=== PATIENT | female | born 1975 | race Caucasian/White ===

== ENCOUNTER 2017-02-09 15:57 | Observation (INO) ==
--- NOTE | 2017-02-09 16:01 | Emergency Department Note ---
Disposition Clinical Impression: Chest pain Disposition: Admitted As Inpatient Condition: Good Referrals: Erin Lopez MD [Primary Care Provider] - Chest Pain HPI - General Stated Complaint: chest pain Time Seen by Provider: 02/09/17 16:01 Source: patient Mode of arrival: private vehicle Limitations: no limitations Vital Signs Reviewed: Yes Nursing Notes Reviewed: Yes - History of Present Illness HPI Narrative: 41-year-old overweight white female presents to emergency department complaining of chest pain. She says for the last week she has been having palpitations and chest pain on and off. She says it became more persistent today and she felt more concerned. She has not had a problem with her heart in the past. She says that when her heart races she feels like she cannot catch her breath. She is currently not short of breath. She describes her pain as a dull ache that goes across her chest and radiates into her left neck. She says occasionally it feels like a sharp stabbing pain. She has had no cough or cold symptoms. She denies any injury. She does not smoke and does not have diabetes. Both her mother and father have a history of coronary artery disease with her father having a massive heart attack at age 40. She says that she has been taking aspirin for her pain. She appears to be comfortable presently. She denies excessive use of caffeine and says that she only has half cup of coffee in the morning. - Related Data Home Medications Medication Instructions Recorded Confirmed No Known Home Drugs 02/09/17 02/09/17 Allergies Allergy/AdvReac Type Severity Reaction Status Date / Time Sulfa (Sulfonamide Allergy Blister Verified 05/14/16 06:20 Antibiotics) sulfamethoxazole Allergy Blister Verified 05/14/16 06:20 [From Bactrim] trimethoprim [From Bactrim] Allergy Blister Verified 05/14/16 06:20 wheat Allergy See Verified 05/14/16 06:20 Comments Erythromycin Base AdvReac Nausea Verified 05/14/16 06:20 latex AdvReac See Verified 05/14/16 06:20 Comments All systems ED: reviewed and negative except as stated. Constitutional: Denies: fever, chills, weakness, weight change Eyes: Denies: eye pain, eye discharge, vision change ENT ED: Denies: ear pain, throat pain, dental pain, hearing loss, epistaxis, congestion, dysphagia Cardiovascular: Reports: as per HPI, chest pain, palpitations Respiratory: Reports: as per HPI, dyspnea Gastrointestinal: Denies: abdominal pain, nausea, vomiting, diarrhea, constipation, hematemesis, melena, hematochezia Genitourinary: Denies: dysuria, frequency, hematuria, discharge Musculoskeletal: Denies: back pain, neck pain, arthralgia, myalgia Integumentary: Denies: rash, abrasion, lesions Neurological: Denies: headache, weakness, numbness, paresthesias, confusion, abnormal gait, vertigo Psychiatric: Denies: anxiety, depression, suicidal thoughts, homicidal thoughts , auditory hallucinations, visual hallucinations Endocrine: Denies: fatigue Hematological/Lymphatic: Denies: easy bleeding, easy bruising Allergic/Immunologic: Denies: facial swelling, urticaria Chest Pain PMH - Past Medical History Medical history: Reports: other Psychiatric history: Reports: depression 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 Absent : tenderness - Respiratory Respiratory exam: Present: normal lung sounds bilaterally - Cardiovascular Cardiovascular exam: Present: regular rate, normal rhythm, normal heart sounds - Abdominal Exam Abdominal exam: Present: soft, Non-Tender. Absent: tenderness, distention, guarding, rebound, rigidity, organomegaly, pulsatile mass - Extremities Exam Extremities exam: Present: normal inspection, full ROM. Absent: tenderness, pedal edema - Back Exam Back exam: Present: normal inspection, full ROM. Absent: tenderness - Neurological Exam Neurological exam: Present: alert, oriented X3 - Psychiatric Psychiatric exam: Present: normal affect, normal mood - Skin Skin exam: Present: warm, dry, intact, normal color Course Course Narrative: The patient remained stable throughout her emergency department stay without complaint. I spoke with Dr. Lopez at 1820 the patient will be observed overnight in the hospital. Vital Signs Temperature 98.0 F 02/09/17 16:02 Pulse Rate 96 02/09/17 16:02 Respiratory Rate 18 02/09/17 16:02 Blood Pressure 120/76 02/09/17 16:02 O2 Sat by Pulse Oximetry 96 02/09/17 16:02 Temperature 98.0 F 02/09/17 16:02 Pulse Rate 74 02/09/17 18:12 Respiratory Rate 16 02/09/17 18:12 Blood Pressure 126/85 02/09/17 18:12 O2 Sat by Pulse Oximetry 99 02/09/17 18:12 Oxygen Delivery Oxygen Delivery Room Air Chest Pain - Lab Data Lab results reviewed: Yes I reviewed the patient's lab results. Result diagrams: 02/09/17 16:24 02/09/17 16:24 Lab Results 02/09/17 02/09/17 02/09/17 Range/Units 16:24 16:24 16:24 WBC 8.5 (4.3-11.1) K/mcL RBC 4.53 (3.82-4.97) M/mcL Hgb 13.0 (11.5-15.4) g/dL Hct 38.7 (35.3-44.9) % MCV 85.4 (83.0-100.0) fL MCH 28.7 (28.0-33.3) pg MCHC 33.6 (31.6-35.5) g/dL RDW 13.2 (11.5-14.5) % Plt Count 292 (140-400) K/mcL MPV 10.2 (9.4-12.4) fL Immature Gran % 0.2 (0-4) % Seg Neutrophils % 57.6 % Lymphocytes % 32.6 % Monocytes % 6.8 % Eosinophils % 2.0 % Basophils % 0.8 % Neutrophils # 4.9 (1.6-8.9) K/mcL Lymphocytes # 2.8 (0.6-4.6) K/mcL Monocytes # 0.6 (0.0-1.3) K/mcL Eosinophils # 0.2 (0.0-0.6) K/mcL Basophils # 0.1 (0.0-0.2) K/mcL PT 11.1 (9.4-12.1) Seconds INR 1.0 D-Dimer 248 (0-500) ng/mLFEU Sodium (136-145) mEq/L Potassium (3.5-4.5) mEq/L Chloride (98-109) mEq/L Carbon Dioxide (19-29) mEq/L BUN (7-20) mg/dL Creatinine (0.57-1.11) mg/dL Est GFR ( Amer) (> 60) Est GFR (Non-Af Amer) (> 60) BUN/Creatinine Ratio (6-26) Glucose (70-99) mg/dL Calculated Osmolality (280-300) Calcium (8.6-10.8) mg/dL Total Bilirubin (0.2-1.2) mg/dL AST (5-34) Units/L ALT (0-55) Units/L Alkaline Phosphatase (38-126) Units/L Troponin I 0.00 (0-0.03) ng/mL Serum Total Protein (6.0-8.3) g/dL Albumin (3.5-5.0) g/dL Globulin (2.4-3.5) g/dL Albumin/Globulin Ratio (1.1-2.2) /02/18 Range/Units 16:24 WBC (4.3-11.1) K/mcL RBC (3.82-4.97) M/mcL Hgb (11.5-15.4) g/dL Hct (35.3-44.9) % MCV (83.0-100.0) fL MCH (28.0-33.3) pg MCHC (31.6-35.5) g/dL RDW (11.5-14.5) % Plt Count (140-400) K/mcL MPV (9.4-12.4) fL Immature Gran % (0-4) % Seg Neutrophils % % Lymphocytes % % Monocytes % % Eosinophils % % Basophils % % Neutrophils # (1.6-8.9) K/mcL Lymphocytes # (0.6-4.6) K/mcL Monocytes # (0.0-1.3) K/mcL Eosinophils # (0.0-0.6) K/mcL Basophils # (0.0-0.2) K/mcL PT (9.4-12.1) Seconds INR D-Dimer (0-500) ng/mLFEU Sodium 143 (136-145) mEq/L Potassium 3.9 (3.5-4.5) mEq/L Chloride 108 (98-109) mEq/L Carbon Dioxide 22 (19-29) mEq/L BUN 8 (7-20) mg/dL Creatinine 0.76 (0.57-1.11) mg/dL Est GFR ( Amer) > 60 (> 60) Est GFR (Non-Af Amer) > 60 (> 60) BUN/Creatinine Ratio 11 (6-26) Glucose 88 (70-99) mg/dL Calculated Osmolality 294 (280-300) Calcium 10.0 (8.6-10.8) mg/dL Total Bilirubin 0.3 (0.2-1.2) mg/dL AST 26 (5-34) Units/L ALT 35 (0-55) Units/L Alkaline Phosphatase 89 (38-126) Units/L Troponin I (0-0.03) ng/mL Serum Total Protein 7.2 (6.0-8.3) g/dL Albumin 3.9 (3.5-5.0) g/dL Globulin 3.3 (2.4-3.5) g/dL Albumin/Globulin Ratio 1.2 (1.1-2.2) - Radiology Data Radiology results reviewed: Yes I reviewed the patient's radiology results. One view chest read by showed no acute cardiopulmonary abnormality. - EKG Data EKG results narrative: Twelve-lead EKG showed a normal sinus rhythm with a rate of 91. No acute ST elevation or depression appreciated and a normal axis.
[2017-02-09] MEDS: Aspirin 81 MG TAB.CHEW PO STA (16:21)
[2017-02-09 16:35] LABS: Basophils # 0.1 K/mcL (0.0-0.2); Basophils % 0.8 %; Eosinophils # 0.2 K/mcL (0.0-0.6); Hematocrit 38.7 % (35.3-44.9); Immature Granulocytes % 0.2 % (0-4); Lymphocytes # 2.8 K/mcL (0.6-4.6); Lymphocytes % 32.6 %; Mean Corpuscular HGB Conc 33.6 g/dL (31.6-35.5); Mean Corpuscular Hemoglobin 28.7 pg (28.0-33.3); Mean Corpuscular Volume 85.4 fL (83.0-100.0); Mean Platelet Volume 10.2 fL (9.4-12.4); Monocytes # 0.6 K/mcL (0.0-1.3); Monocytes % 6.8 %; Neutrophils # 4.9 K/mcL (1.6-8.9); Platelet Count 292 K/mcL (140-400); Red Blood Count 4.53 M/mcL (3.82-4.97); Red Cell Distribution Width 13.2 % (11.5-14.5); Segmented Neutrophils % 57.6 %
[2017-02-09 16:40] LABS: Prothrombin Time 11.1 Seconds (9.4-12.1)
[2017-02-09 16:58] LABS: Alanine Aminotransferase 35 Units/L (0-55); Albumin 3.9 g/dL (3.5-5.0); Albumin/Globulin Ratio 1.2 (1.1-2.2); Alkaline Phosphatase 89 Units/L (38-126); Aspartate Amino Transferase 26 Units/L (5-34); BUN/Creatinine Ratio 11 (6-26); Bilirubin,Total 0.3 mg/dL (0.2-1.2); Blood Urea Nitrogen 8 mg/dL (7-20); Carbon Dioxide 22 mEq/L (19-29); Chloride 108 mEq/L (98-109); Globulin 3.3 g/dL (2.4-3.5); Glucose 88 mg/dL (70-99); Osmolality,Calculated 294 (280-300); Potassium 3.9 mEq/L (3.5-4.5); Sodium 143 mEq/L (136-145); Total Protein 7.2 g/dL (6.0-8.3); eGFR For African Americans > 60 (> 60); eGFR For Non-African Americans > 60 (> 60)
[2017-02-09] MEDS ORDERED: *HR* Morphine 2 MG/ML SYRINGE IVP PRN ×2 (18:26→19:20)
[2017-02-09] MEDS ORDERED: Ketorolac 30 MG/ML VIAL IVP PRN ×2 (18:26→19:20)
[2017-02-09] MEDS ORDERED: *HR* HYDROcodone/Acet 5/325 mg TABLET PO PRN ×2 (18:26→19:20)
[2017-02-09] MEDS ORDERED: Acetaminophen 325 MG TABLET PO PRN ×2 (18:26→19:20)
[2017-02-09] MEDS ORDERED: Naloxone 0.4 MG/ML INJ IVP PRN ×2 (18:26→19:20)
[2017-02-09] MEDS ORDERED: Ibuprofen 400 MG TABLET PO PRN ×2 (18:26→19:20)
[2017-02-09] MEDS ORDERED: Ondansetron 4 MG/2 ML VIAL IVP PRN ×2 (18:26→19:20)
[2017-02-09] MEDS ORDERED: *HR* Promethazine 25 MG/ML VIAL IVP PRN ×2 (18:26→19:20)
--- NOTE | 2017-02-09 20:43 | Internal Med History&Physical ---
Date of Encounter: 02/09/17 Time of Encounter: 21:31 Assessment and Plan (1) Chest pain Current visit: Yes Status: Acute She has been admitted for observation she is placed on telemetry we will cycle cardiac enzymes if the enzymes are negative we will arrange for an outpatient stress testing if they are positive we will obtain one before discharge. Qualifiers: Chest pain type: unspecified Qualified Code(s): R07.9 - Chest pain, unspecified (2) Heart palpitations Current visit: Yes Status: Acute She is admitted for observation she is placed on telemetry we will check a TSH. We will likely arrange for an outpatient echo. unless something shows up on her telemetry. (3) Vitamin D deficiency Current visit: Yes Status: Acute We will continue her home medication (4) Folate deficiency Current visit: Yes Status: Acute We will continue her home medication Internal Medicine - H&P: HPI Chief complaint: chest pain Admitted From: Home Plans for Post Hospital Care: Home History of present illness: Ms. Jane is a 41 year old female who presents to the emergency room with a one -week history of chest pain she feels like she cannot catch her breath and she has to yawn or take deep breaths to try and catch her breath to feel better. She will she will have episodes where her heart is racing lasting 1-2 minutes she wakes up 3-4 times a night with episodes of her heart racing as well. Her phone told her it was at 130 beats a minute. She has not been coughing she has not been wheezing she has not run a fever she does get dizzy when her heart starts racing but she has not passed out she has not had any falls she has not had this happen to her before. She does not get diaphoretic with it. If she gets up and walks around she will feel better. These episodes usually happen when she is sleeping or when she is sitting they do not typically happen with exertion. Past Med Surg Social Fam HX - Past Medical History Medical history: other (vitamin d def,hsv labialis, endometriosis, folate def, hx of celiac dx per pt. ) Psychiatric history: depression - Past Surgical History Surgical History: hysterectomy (LAVH/BSO 05/14/16), orthopedic, other (right ankle orif 07/2013), other (bps 06/2008) - Social History Smoking Status: Never smoker Smokeless Tobacco Status: No Alcohol use: none Drug use: none - Family History Father Living Status: Age at : 54 Hx Family Cardiac Disorders: Yes (cad,htn) Hx Family Cancer: Yes (glioblastoma) Hx Family Neurologic Disorders: Yes (bells palsy) Mother Living Status: Still Living Hx Family Cardiac Disorders: Yes (htn,lipid) Paternal Grandfather Living Status: Cause of : accident Paternal Grandmother Living Status: Hx Family Cancer: Yes (breast) Maternal Grandfather Living Status: Cause of : black lung, 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 Hx Family Cancer: Yes (lung) Maternal Grandmother Living Status: Cause of : pancreatic cancer, etoh Hx Family Cancer: Yes (pancreatic) Internal Medicine - H&P: Meds Cholecalciferol (Vitamin D3) [Vitamin D] 50,000 unit PO QWEEK 02/09/17 [History] Folic Acid 1 mg PO DAILY 02/09/17 [History] Allergies Sulfa (Sulfonamide Antibiotics) Allergy (Unknown, Verified 02/09/17 20:09) Blister sulfamethoxazole [From Bactrim] Allergy (Unknown, Verified 02/09/17 20:10) Blister trimethoprim [From Bactrim] Allergy (Unknown, Verified 02/09/17 20:10) Blister wheat Allergy (Unknown, Verified 02/09/17 20:10) See Comments celiac disease Erythromycin Base Adverse Reaction (Unknown, Verified 02/09/17 20:10) Nausea latex Adverse Reaction (Unknown, Verified 02/09/17 20:10) See Comments irritates skin Nickel Adverse Reaction (Verified 02/09/17 20:08) See Comments Dermatitis Rash All Systems PM: A 10-system review of systems was performed and is negative for pertinent findings except as documented above in the HPI. - Constitutional Constitutional: fatigue, no fever(s), no falls, no weakness - EENT Eyes: loss of vision (she has an appt next week) Nose, mouth and throat: no sore throat - Cardiovascular Cardiovascular ROS IM: chest pain, irregular heart rhythm, palpitations, no edema, no syncope - Respiratory Respiratory: dyspnea, no wheezing - Gastrointestinal Gastrointestinal: no abdominal pain, no constipation, no loose stools, no nausea , no vomiting - Integumentary Integumentary IM: pruritus (when she changes laundry detergent), no rash - Neurological Neurological ROS: no frequent falls, no numbness, no weakness - Psychiatric Psychiatric: no depression, no mood swings - Allergic/Immunologic Allergic/Immunologic: GI upset with certain foods (wheat) - Constitutional Vitals: Temp Pulse Resp BP Pulse Ox 98.1 F 72 18 108/67 97 02/09/17 19:47 02/09/17 19:47 02/09/17 19:47 02/09/17 19:47 02/09/17 19:47 General appearance: Present: A&O X 3, morbidly obese, no acute distress - Head Head exam: Present: atraumatic, normocephalic - Neck Neck exam general surgery: Present: supple. Absent: lymphadenopathy, tenderness - Respiratory Respiratory exam: Present: CTAB - Cardiovascular Cardiovascular exam: Present: +S1, +S2. Absent: RRR, systolic murmur - GI/Abdominal GI/Abdominal exam: Present: normal bowel sounds, no peritoneal signs. Absent: guarding, mass, rebound, tenderness - Extremities Exam Extremities exam: Present: normal capillary refill. Absent: pedal edema - Skin Skin exam: Present: dry, warm. Absent: rash Internal Med - H&P Results - Labs CBC & Chem 7: 02/09/17 16:24 02/09/17 16:24
[2017-02-09] MEDS: Cholecalciferol (D-3) 1,000 UNIT TABLET PO SCH (23:46)
[2017-02-10 05:23] LABS: Prothrombin Time 11.1 Seconds (9.4-12.1)
[2017-02-10 05:26] LABS: Hematocrit 37.1 % (35.3-44.9); Hemoglobin 12.3 g/dL (11.5-15.4); Mean Corpuscular HGB Conc 33.2 g/dL (31.6-35.5); Mean Corpuscular Hemoglobin 28.7 pg (28.0-33.3); Mean Corpuscular Volume 86.7 fL (83.0-100.0); Mean Platelet Volume 10.4 fL (9.4-12.4); Platelet Count 259 K/mcL (140-400); Red Blood Count 4.28 M/mcL (3.82-4.97); Red Cell Distribution Width 13.3 % (11.5-14.5)
[2017-02-10 05:27] LABS: Magnesium 1.8 mg/dL (1.6-2.6)
[2017-02-10 05:34] LABS: Alanine Aminotransferase 32 Units/L (0-55); Albumin 3.4 g/dL (3.5-5.0); Albumin/Globulin Ratio 1.2 (1.1-2.2); Alkaline Phosphatase 77 Units/L (38-126); Aspartate Amino Transferase 24 Units/L (5-34); BUN/Creatinine Ratio 14 (6-26); Bilirubin,Total 0.4 mg/dL (0.2-1.2); Blood Urea Nitrogen 11 mg/dL (7-20); Calcium 9.5 mg/dL (8.6-10.8); Carbon Dioxide 22 mEq/L (19-29); Chloride 109 mEq/L (98-109); Globulin 2.9 g/dL (2.4-3.5); Glucose 122 mg/dL (70-99); Osmolality,Calculated 295 (280-300); Sodium 142 mEq/L (136-145); Total Protein 6.3 g/dL (6.0-8.3); eGFR For African Americans > 60 (> 60); eGFR For Non-African Americans > 60 (> 60)
[2017-02-10] MEDS: Folic Acid 1 MG TABLET PO SCH (08:56)
--- NOTE | 2017-02-10 09:30 | Discharge Summary ---
Date of Encounter: 02/10/17 Time of Encounter: 09:26 - Discharge Diagnosis (1) Chest pain Priority: Primary Status: Acute Comments: Patient was admitted overnight for observation having had chest pain for a week. She thought she could not catch her breath and has to yawn or take deep breaths to catch her breath better. She awakens in the night with episodes of heart racing last for 1-2 minutes. She denies any exertional angina. Her workup in the ER and during the overnight stay in observation bed has been negative. Serial troponins have been 0.00 times three. On day of discharge she was asymptomatic. She did not awaken in the middle of the night with any episodes and her monitor shows normal sinus rhythm. EKG is normal. Her examination is normal. She will be discharged today to continue workup as an outpatient including stress testing as per Dr. Lopez's plans. We are trying to arrange an event monitor and not sure if we can do so at discharge or needs to be arranged as an outpatient. Qualifiers: Chest pain type: unspecified Qualified Code(s): R07.9 - Chest pain, unspecified (2) Vitamin D deficiency Priority: Secondary Status: Chronic (3) Heart palpitations Priority: Secondary Status: Chronic Comments: She did not have any heart palpitations or tachycardia in the night. Her examination is normal. school lunch monitor shows normal sinus rhythm. We are trying to arrange a cardiac event monitor. - Discharge Medications Home Medications: Cholecalciferol (Vitamin D3) [Vitamin D3] 50,000 unit PO QWEEK 02/09/17 [History ] Folic Acid 1 mg PO DAILY 02/09/17 [History] Allergies/Adverse Reactions: Allergies Sulfa (Sulfonamide Antibiotics) Allergy (Unknown, Verified 02/09/17 20:09) Blister sulfamethoxazole [From Bactrim] Allergy (Unknown, Verified 02/09/17 20:10) Blister trimethoprim [From Bactrim] Allergy (Unknown, Verified 02/09/17 20:10) Blister wheat Allergy (Unknown, Verified 02/09/17 20:10) See Comments celiac disease Erythromycin Base Adverse Reaction (Unknown, Verified 02/09/17 20:10) Nausea latex Adverse Reaction (Unknown, Verified 02/09/17 20:10) See Comments irritates skin Nickel Adverse Reaction (Verified 08/08/17 20:08) See Comments Dermatitis Rash Procedures/tests Complete & Pending: Laboratory Results - last 24 hr 02/09/17 02/09/17 02/09/17 16:24 16:24 16:24 WBC 8.5 RBC 4.53 Hgb 13.0 Hct 38.7 MCV 85.4 MCH 28.7 MCHC 33.6 RDW 13.2 Plt Count 292 MPV 10.2 Immature Gran % 0.2 Seg Neutrophils % 57.6 Lymphocytes % 32.6 Monocytes % 6.8 Eosinophils % 2.0 Basophils % 0.8 Neutrophils # 4.9 Lymphocytes # 2.8 Monocytes # 0.6 Eosinophils # 0.2 Basophils # 0.1 PT 11.1 INR 1.0 D-Dimer 248 Sodium Potassium Chloride Carbon Dioxide BUN Creatinine Est GFR ( Amer) Est GFR (Non-Af Amer) BUN/Creatinine Ratio Glucose Calculated Osmolality Calcium Magnesium Total Bilirubin AST ALT Alkaline Phosphatase Troponin I 0.00 Serum Total Protein Albumin Globulin Albumin/Globulin Ratio 02/09/17 02/09/17 02/10/17 16:24 20:20 05:10 WBC RBC Hgb Hct MCV MCH MCHC RDW Plt Count MPV Immature Gran % Seg Neutrophils % Lymphocytes % Monocytes % Eosinophils % Basophils % Neutrophils # Lymphocytes # Monocytes # Eosinophils # Basophils # PT INR D-Dimer Sodium 143 Potassium 3.9 Chloride 108 Carbon Dioxide 22 BUN 8 Creatinine 0.76 Est GFR ( Amer) > 60 Est GFR (Non-Af Amer) > 60 BUN/Creatinine Ratio 11 Glucose 88 Calculated Osmolality 294 Calcium 10.0 Magnesium 1.8 Total Bilirubin 0.3 AST 26 ALT 35 Alkaline Phosphatase 89 Troponin I 0.00 Serum Total Protein 7.2 Albumin 3.9 Globulin 3.3 Albumin/Globulin Ratio 1.2 02/10/17 02/10/17 02/10/17 05:10 05:10 05:10 WBC 6.3 RBC 4.28 Hgb 12.3 Hct 37.1 MCV 86.7 MCH 28.7 MCHC 33.2 RDW 13.3 Plt Count 259 MPV 10.4 Immature Gran % Seg Neutrophils % Lymphocytes % Monocytes % Eosinophils % Basophils % Neutrophils # Lymphocytes # Monocytes # Eosinophils # Basophils # PT 11.1 INR 1.0 D-Dimer Sodium 142 Potassium 4.0 Chloride 109 Carbon Dioxide 22 BUN 11 Creatinine 0.76 Est GFR ( Amer) > 60 Est GFR (Non-Af Amer) > 60 BUN/Creatinine Ratio 14 Glucose 122 H Calculated Osmolality 295 Calcium 9.5 Magnesium Total Bilirubin 0.4 AST 24 ALT 32 Alkaline Phosphatase 77 Troponin I Serum Total Protein 6.3 Albumin 3.4 L Globulin 2.9 Albumin/Globulin Ratio 1.2 02/10/17 05:10 WBC RBC Hgb Hct MCV MCH MCHC RDW Plt Count MPV Immature Gran % Seg Neutrophils % Lymphocytes % Monocytes % Eosinophils % Basophils % Neutrophils # Lymphocytes # Monocytes # Eosinophils # Basophils # PT INR D-Dimer Sodium Potassium Chloride Carbon Dioxide BUN Creatinine Est GFR ( Amer) Est GFR (Non-Af Amer) BUN/Creatinine Ratio Glucose Calculated Osmolality Calcium Magnesium Total Bilirubin AST ALT Alkaline Phosphatase Troponin I 0.00 Serum Total Protein Albumin Globulin Albumin/Globulin Ratio Date of admission: 02/09/17 18:35 Primary care physician: Erin Lopez, Discharging clinician: Saran Goldman Anticipated date of discharge: 02/10/17 - Patient Status Disposition: Home, Self-Care Functional capacity at discharge: independent ambulation Overall status at discharge: patient is back to baseline - Discharge Instructions Follow Up With: Erin Lopez MD [Primary Care Provider] - Forms: ED Satisfaction Letter Additional Instructions: 's office will arrange further testing as an outpatient. The office will call you about that. Should not need to be seen in office before that is arranged. - Diet and Activity Activity: increase activity as tolerated Diet: advance to your usual diet Interval History: Patient slept well through the night. She did not awaken with any tachycardia episodes. She has no chest pain. school lunch monitor showed normal sinus rhythm. Hospital course: Ms. Jane is a 41 year old female admitted to observation bed overnight for chest pain and history of nighttime tachycardia. She was basically asymptomatic through the course. Her cardiac monitor showed normal sinus rhythm. Morning EKG is normal. Enzymes done serially are 0.00 times three. Her examination on discharge is normal. She is no symptoms this morning. We are trying to arrange a cardiac event monitor as an outpatient. Further evaluation and workup per Dr. Lopez. - Time Spent with Patient Total time spent providing and/or coordinating discharge services: - Constitutional Vitals: Temp Pulse Resp BP Pulse Ox 97.4 F L 60 14 101/65 98 02/10/17 07:33 02/10/17 07:33 02/10/17 07:33 02/10/17 07:33 02/10/17 07:33 General appearance: Present: A&O X 3, morbidly obese, no acute distress - Respiratory Respiratory exam: Present: CTAB - Cardiovascular Cardiovascular exam: Present: RRR, +S1, +S2. Absent: systolic murmur, tachycardia - GI/Abdominal GI/Abdominal exam: Present: soft. Absent: tenderness - Extremities Exam Extremities exam: Absent: calf tenderness, pedal edema - VTE Documentation of Mechanical Device: Graduated compression elastic hosiery
[2017-02-10 11:34] VITALS: BP 148/77
[2017-02-10 12:52] LABS: Thyroid Stimulating Hormone 2.439 mcIU/mL (0.350-4.840)
--- NOTE | 2017-02-10 20:18 | Electrocardiograph Report ---
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
--- NOTE | 2017-02-10 20:38 | Electrocardiograph Report ---
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
== END 2017-02-10 12:19 | disposition home or self-care (01) ==
LOC: INPGRE 15:57 → EMEROOGRE 15:57 → INPGRE 19:15
PROVIDERS: ADMIT Family Medicine; ATTEND Family Medicine